=== PATIENT | male | born 1965 | race Caucasian/White ===

== ENCOUNTER 2019-06-03 10:14 | Day surgery (SDC) | payer BC ==
[~2019-06-03 10:14] MED LIST: Acetaminophen TAB* 325 MG PO PRN; Buffered Lidocaine 1% SYRIN* 1 ML/SYRINGE INTRADERM ONE
[2019-06-03] MEDS ORDERED: fentaNYL* 50 MCG/ML 2 ML VIAL (100 MCG VIAL) ONE (12:25)
[2019-06-03] MEDS ORDERED: Midazolam* 1 MG/ML 2 ML VIAL (2 MG) ONE (12:25)
[2019-06-03 13:35] VITALS: BP 134/94
[2019-06-03] MEDS ORDERED: Proparacaine 0.5% OPHTH.SOL* 15 ML BTL ONE (13:43)
[2019-06-03] MEDS ORDERED: Phenylephrine OPHTH SOL 2.5%* 2 ML ONE (13:43)
[2019-06-03] MEDS ORDERED: Lidocaine 2% w/ EPI 1:200,000* 20 ML SDV VIAL ONE (13:43)
[2019-06-03] MEDS ORDERED: Lidocaine 1% MPF ** 5 ML VIAL ONE (13:43)
[2019-06-03] MEDS ORDERED: Ketorolac 0.5% OPHTH (NF) 0.5 % 5 ML BTL ONE (13:43)
[2019-06-03] MEDS ORDERED: Neomycin/Polymy/Dex OPTH.SUSP* MAXITROL 0.1% 5 ML ONE (13:43)
[2019-06-03] MEDS ORDERED: Povidone Iodine 5% OPTH* 30 ML BTL ONE (13:43)
[2019-06-03] MEDS ORDERED: Cyclopentolate 1% OPTH.SOL* 2 ML BTL ONE (13:43)
[2019-06-03] MEDS ORDERED: acetaZOLAMIDE TAB* 250 MG ONE (13:43)
--- NOTE | 2019-06-03 14:16 | OP ---
DATE OF OPERATION: 06/03/2019. DATE OF : 1965. SURGEON: Sourav Rubio M.D. PREOPERATIVE DIAGNOSIS: Cataract left eye. POSTOPERATIVE DIAGNOSIS: Cataract left eye. OPERATIVE PROCEDURE: Extracapsular cataract extraction with intraocular lens implant left eye. PROCEDURE: The patient was brought to the operating room after being given 1/2% Alcaine with epineph rine drops in the preoperative area. The eye was prepped and draped in the usual sterile fashion. S terile drape and eyelid speculum were placed. Again, topical 1/2% Alcaine with epinephrine was given . A paracentesis incision was made at the 3 o'clock position with the No.75 blade. Clear cornea inc ision 2.2 x 2.2-mm was created at the 6 o'clock position starting at the anterior limbus using the 2. 2-mm keratome. The anterior chamber was irrigated with 0.4 mL of 1% non-preservative intracameral li docaine and filled with DisCoVisc. A capsulorrhexis was completed using the cystotome and the Utrata forceps. Hydrodissection was performed with balanced salt solution. The lens nucleus was removed wi th the Phacoemulsification handpiece without incident. Cortex was removed with the irrigation-aspira tion handpiece. The capsular bag was re-inflated using DisCoVisc and an [id number] implant was insert ed with the shooter. All measurements were confirmed with ORA. The irrigation-aspiration handpiece was used to remove all residual DisCoVisc. The eye was refilled with balanced salt solution and the wound checked and found to be watertight. Topical Maxitrol drops were given. [id number]/[facility] #: [id number]
== END 2019-06-03 13:45 | disposition home or self-care (01) ==
LOC: OREAST 10:14
PROVIDERS: ATTEND Specialist
DX: H25.12 Age-related nuclear cataract, left eye (principal); E78.5 Hyperlipidemia, unspecified; H33.312 Horseshoe tear of retina without detachment, left eye; Z87.891 Personal history of nicotine dependence
CPT/HCPCS: A9270-GY; J2250; J3010; V2632

== ENCOUNTER 2019-06-10 06:29 | Day surgery (SDC) | payer BC ==
[2019-06-10] MEDS ORDERED: Midazolam* 1 MG/ML 2 ML VIAL (2 MG) ONE (07:30)
[2019-06-10] MEDS ORDERED: fentaNYL* 50 MCG/ML 2 ML VIAL (100 MCG VIAL) ONE (07:30)
[2019-06-10] MEDS ORDERED: BSS OPTH.SOL* BTL ONE (07:43)
[2019-06-10 08:20] VITALS: BP 131/90
--- NOTE | 2019-06-10 10:32 | OP ---
DATE OF OPERATION: 06/10/2019 - [facility] DATE OF : 1965. SURGEON: Sourav Rubio M.D. PREOPERATIVE DIAGNOSIS: Cataract right eye. POSTOPERATIVE DIAGNOSIS: Cataract right eye. OPERATIVE PROCEDURE: Extracapsular cataract extraction with intraocular lens implant right eye. DESCRIPTION OF PROCEDURE: The patient was brought to the operating room after being given 1/2% Alcaine with epinephrine drops in the preoperative area. The eye was prepped and draped in the usual sterile fashion. Sterile drape and eyelid speculum were placed. Again, topical 1/2% Alcaine with epinephrine was given. A paracentesis incision was made at the 9 o'clock position with the No.75 blade. Clear cornea incision 2.2 x 2.2-mm was created at the 12 o'clock position starting at the anterior limbus using the 2.2-mm keratome. The anterior chamber was irrigated with 0.4 mL of 1% non-preservative intracameral lidocaine and filled with DisCoVisc. A capsulorrhexis was completed using the cystotome and the Utrata forceps. Hydrodissection was performed with balanced salt solution. The lens nucleus was removed with the Phacoemulsification handpiece without incident. Cortex was removed with the irrigation-aspiration handpiece. The capsular bag was re-inflated using DisCoVisc and an [id number] 20 implant was inserted with the shooter. The irrigation-aspiration handpiece was used to remove all residual DisCoVisc. The eye was refilled with balanced salt solution and the wound checked and found to be watertight. Topical Maxitrol drops were given. [id number]/[facility] #: [id number] [facility]
[2019-06-10] MEDS ORDERED: Lidocaine 2% w/ EPI 1:200,000* 20 ML SDV VIAL ONE (13:18)
[2019-06-10] MEDS ORDERED: Phenylephrine OPHTH SOL 2.5%* 2 ML ONE (13:18)
[2019-06-10] MEDS ORDERED: Lidocaine 1% MPF ** 5 ML VIAL ONE (13:18)
[2019-06-10] MEDS ORDERED: Povidone Iodine 5% OPTH* 30 ML BTL ONE (13:18)
[2019-06-10] MEDS ORDERED: Neomycin/Polymy/Dex OPTH.SUSP* MAXITROL 0.1% 5 ML ONE (13:18)
[2019-06-10] MEDS ORDERED: Cyclopentolate 1% OPTH.SOL* 2 ML BTL ONE (13:18)
[2019-06-10] MEDS ORDERED: acetaZOLAMIDE TAB* 250 MG ONE (13:18)
[2019-06-10] MEDS ORDERED: Ketorolac 0.5% OPHTH (NF) 0.5 % 5 ML BTL ONE (13:19)
[2019-06-10] MEDS ORDERED: Proparacaine 0.5% OPHTH.SOL* 15 ML BTL ONE (13:19)
== END 2019-06-10 08:27 | disposition home or self-care (01) ==
LOC: OREAST 06:29
PROVIDERS: ATTEND Specialist
DX: H25.11 Age-related nuclear cataract, right eye (principal); H33.312 Horseshoe tear of retina without detachment, left eye; H33.8 Other retinal detachments; Z87.891 Personal history of nicotine dependence; E78.5 Hyperlipidemia, unspecified; J30.89 Other allergic rhinitis
CPT/HCPCS: A9270-GY; J2250; J3010; V2632